=== PATIENT | female | born 1990 | race American Indian/Alaskan Native ===

== ENCOUNTER 2021-03-02 15:44 | Outpatient (CLI) | payer MEDICAID ==
[2021-03-02 16:43] VITALS: BP 107/60
[2021-03-02] MEDS ORDERED: LACTATED RINGERS 1,000 ML IV SCH (17:15)
[2021-03-02 17:23] LABS: Bacteria,Urine 1+ /HPF (Negative); Bilirubin,Urine NEG (Negative); Blood,Urine NEG (Negative); Color,Urine Straw (Yellow); Protein,Urine <15 mg/dL mg/dL (Negative); Urobilinogen,Urine < 2.0 mg/dL (<2.0)
[2021-03-02 17:26] LABS: Amphetamine Screen,Urine Negative; Benzodiazepines Screen,Urine Negative; Cocaine Screen,Urine Negative; Methadone Screen,Urine Negative; Opiate Screen,Urine Negative
[2021-03-02 18:14] LABS: Cannabinoid Screen,Urine Positive
== END 2021-03-02 17:00 | disposition swing bed (61) ==
LOC: TRG 15:44 → APU 15:45 → TRG 17:00 → APU 19:37
PROVIDERS: ATTEND Obstetrics & Gynecology
DX: O26.893 Other specified pregnancy related conditions, third trimester (principal); W19.XXXA Unspecified fall, initial encounter; Y93.89 Activity, other specified; Y92.89 Other specified places as the place of occurrence of the external cause; Y99.8 Other external cause status
CPT/HCPCS: 80307; 81001; 87076; 87086; 87186

== ENCOUNTER 2021-03-02 17:10 | Emergency (ER) | payer MEDICAID ==
[2021-03-02 17:58] VITALS: BP 118/47
[2021-03-02] MEDS ORDERED: ACETAMINOPHEN 500 MG TAB ONE (18:03)
--- NOTE | 2021-03-02 18:31 | Emergency Department Report ---
ED General Adult HPI - General Chief complaint: Fall Stated complaint: 27WKS /FELL PUI?: No Source: patient Mode of arrival: Ambulatory Limitations: No Limitations - History of Present Illness Initial comments: This is a 30-year-old female at approximately 27 weeks gestation who presents to the ED complaining of lower back pain and headache status post falling earlier today about an hour prior to arrival. Patient states that she fell down and hit her but and hit the back of her head to a concrete wall. Patient denies any loss of consciousness after fall. Patient states that she has had a minor throbbing headache since then. Patient also states she has some lower back muscular pain. Patient denies vaginal bleeding or abdominal or pelvic pain. - Related Data Previous Rx's Medication Instructions Recorded Last Taken Type Acetaminophen [Tylenol Extra 1,000 mg PO TID #40 tab 03/02/21 Unknown Rx Strength] Allergies Allergy/AdvReac Type Severity Reaction Status Date / Time No Known Allergies Allergy Verified 03/02/21 16:07 ED Review of Systems ROS: Stated complaint: 27WKS /FELL Other details as noted in HPI Comment: All other systems reviewed and negative ED Past Medical Hx - Past Medical History Previous Medical History?: No Hx Hypertension: No Hx Diabetes: No Hx Deep Vein Thrombosis: No Hx Renal Disease: No Hx Sickle Cell Disease: No Hx Seizures: No Hx Asthma: No - Social History Smoking Status: Former Smoker - Medications Home Medications: Home Medications Medication Instructions Recorded Confirmed Last Taken Type Acetaminophen [Tylenol Extra 1,000 mg PO TID #40 tab 03/02/21 Unknown Rx Strength] ED Physical Exam - General Limitations: No Limitations General appearance: alert, in no apparent distress - Head Head exam: Present: atraumatic, normocephalic - Eye Eye exam: Present: normal appearance - ENT ENT exam: Present: mucous membranes moist - Neck Neck exam: Present: normal inspection, full ROM. Absent: tenderness - Respiratory Respiratory exam: Present: normal lung sounds bilaterally. Absent: respiratory distress - Cardiovascular Cardiovascular Exam: Present: regular rate, normal rhythm. Absent: systolic murmur, diastolic murmur, rubs, gallop - GI/Abdominal GI/Abdominal exam: Present: soft, normal bowel sounds, other (Gravid abdomen, no echymosis, ). Absent: tenderness, guarding - Extremities Exam Extremities exam: Present: normal inspection - Back Exam Back exam: Present: normal inspection - Neurological Exam Neurological exam: Present: alert, oriented X3 - Psychiatric Psychiatric exam: Present: normal affect, normal mood - Skin Skin exam: Present: warm, dry, intact, normal color. Absent: rash ED Course Vital Signs 03/02/21 17:56 Temperature 98.6 F Pulse Rate 65 Respiratory 18 Rate Blood Pressure 118/47 [Right] O2 Sat by Pulse 99 Oximetry ED Medical Decision Making - Radiology Data 30-year-old female presents status post fall. Patient has been cleared by labor and delivery and presented here for evaluation. Patient is not in any acute distress nor not in respiratory distress. Vital signs are normal. Discussed with patient Tylenol every 6-8 hours for pain. Discussed with patient if she noticed any new symptoms such as vaginal bleeding abdominal pain to return to the ED immediately. Patient had no neurological deficit discussed close concussion syndrome patient. Patient was speaking in clear sentences and understands all instructions. Critical care attestation.: If time is entered above; I have spent that time in minutes in the direct care of this critically ill patient, excluding procedure time. ED Disposition Clinical Impression: Strain of muscle, fascia and tendon of lower back, initial encounter, Post- concussion headache Disposition: DC- TO HOME OR SELFCARE Is pt being admited?: No Does the pt Need Aspirin: No Condition: Stable Instructions: Lumbar Sprain, Post-Concussion Syndrome, [id number], Tension Headache, Adult, [id number], How to Use Cold Therapy Additional Instructions: Make sure to follow up with the primary care physician as discussed. Take all your medications as you've been prescribed. If you have any worsening symptoms or develop new symptoms please return to ED immediately. Prescriptions: Acetaminophen [Tylenol Extra Strength] 1,000 mg PO TID #40 tab Referrals: PRIMARY CARE, [Primary Care Provider] - 3-5 Days Forms: Work/School Release Form(ED) Time of Disposition: 18:35
== END 2021-03-02 18:54 | disposition home or self-care (01) ==
LOC: ED 17:10
DX: O9A.212 Injury, poisoning and certain other consequences of external causes complicating pregnancy, second trimester (principal); S39.012A Strain of muscle, fascia and tendon of lower back, initial encounter; Z3A.27 27 weeks gestation of pregnancy; Z87.891 Personal history of nicotine dependence; Z79.899 Other long term (current) drug therapy; W19.XXXA Unspecified fall, initial encounter; Y93.89 Activity, other specified; Y92.89 Other specified places as the place of occurrence of the external cause; Y99.8 Other external cause status